=== PATIENT | female | born 1980 | race Asian ===

== ENCOUNTER 2017-09-29 08:21 | Emergency (ER) | payer BC ==
[~2017-09-29] VITALS: Ht 157.5 cm; Wt 60.8 kg
[2017-09-29 08:24] VITALS: BP 123/76
[2017-09-29] MEDS ORDERED: ONDANSETRON 4 MG TAB.RAPDIS PO ONE (09:00)
[2017-09-29] MEDS ORDERED: BENZONATATE 100 MG CAPSULE PO PRN (09:00)
[2017-09-29] MEDS ORDERED: DEXAMETHASONE SOD PHOSPHATE 4 MG/ML VIAL IM ONE (09:00)
[2017-09-29] MEDS ORDERED: HYDROCODONE BIT/HOMATROPINE 5 ML UDC PO ONE (09:00)
[2017-09-29] MEDS ORDERED: HYDROCODONE BIT/HOMATROPINE 5 ML UDC ONE (09:06)
[2017-09-29] MEDS ORDERED: DEXAMETHASONE SOD PHOSPHATE 4 MG/ML VIAL ONE (09:06)
[2017-09-29] MEDS ORDERED: ONDANSETRON 4 MG TAB.RAPDIS ONE (09:07)
== END 2017-09-29 10:04 | disposition home or self-care (01) ==
LOC: ER 08:23
DX: J40 Bronchitis, not specified as acute or chronic (principal); Z88.1 Allergy status to other antibiotic agents
CPT/HCPCS: 71010; 96372; 99283; A4606; J1100; Q0162; Z7610